=== PATIENT | male | born 1980 | race Hispanic/Latino ===

== ENCOUNTER 2024-09-24 21:20 | Emergency (ER) | payer SELFPAY ==
[2024-09-24] MEDS ORDERED: Ibuprofen 800 MG TAB ONE (21:53)
== END 2024-09-24 22:13 | disposition home or self-care (01) ==
LOC: NAV ERS 21:20
DX: S90.121A Contusion of right lesser toe(s) without damage to nail, initial encounter (principal); S90.424A Blister (nonthermal), right lesser toe(s), initial encounter; F10.129 Alcohol abuse with intoxication, unspecified; I25.2 Old myocardial infarction; Y90.9 Presence of alcohol in blood, level not specified; W20.8XXA Other cause of strike by thrown, projected or falling object, initial encounter
CPT/HCPCS: 99283